=== PATIENT | male | born 2000 | race Caucasian/White ===

== ENCOUNTER 2022-06-06 00:41 | Emergency (ER) | payer BC ==
[2022-06-06 00:52] VITALS: BP 130/78; PULSE 81; RESP 18
[2022-06-06 01:06] VITALS: TEMP 98.1
[2022-06-06] MEDS ORDERED: CEPHALEXIN 500 MG CAP PO STA (01:19)
[2022-06-06] MEDS ORDERED: SULFAMETHOX-TMP 800-160MG 1 EACH TAB PO STA (01:19)
--- NOTE | 2022-06-06 01:33 | ED ---
Skin/Abscess/FB HPI - General Chief complaint: Skin/Abscess/Foreign Body Stated complaint: RT arm abscess Time Seen by Provider: 06/06/22 01:03 Source: patient, RN notes reviewed Mode of arrival: ambulatory Limitations: no limitations - History of Present Illness Initial comments: This is a 21-year-old male who presents to the emergency department for an abscess to the right armpit. He said he first noticed this today. He is not having any significant pain. He had a similar problem in the left armpit in December 2021. He was started on Bactrim, but states that the problem progressed and he subsequently required hospital admission with IV antibiotics. Denies any fevers, chills, sore throat, cough, dyspnea, chest pain, palpitations, abdominal pain, nausea, vomiting, diarrhea, back pain, or headaches. MD complaint: abscess/boil Onset/Timin -: days(s) Location: RUE - Related Data Previous Rx's Medication Instructions Recorded Sulfamethox-Tmp 800-160Mg [Bactrim 1 tab PO Q12HR 7 Days #14 tab 01/07/22 DS 800-160 mg] Cephalexin [Keflex] 500 mg PO Q6HR 7 Days #28 cap 06/06/22 Sulfamethox-Tmp 800-160Mg [Bactrim 1 tab PO Q12HR 7 Days #14 tab 06/06/22 DS 800-160 mg] Allergies Allergy/AdvReac Type Severity Reaction Status Date / Time No Known Allergies Allergy Verified 01/13/22 15:16 Review of Systems ROS Statement: Those systems with pertinent positive or pertinent negative responses have been documented in the HPI. ROS Other: All systems not noted in ROS Statement are negative. Past Medical History Past Medical History: No Reported History History of Any Multi-Drug Resistant Organisms: None Reported Past Surgical History: No Surgical Hx Reported Past Psychological History: ADD/ADHD, Bipolar Smoking Status: Current every day smoker Past Alcohol Use History: None Reported Past Drug Use History: None Reported General Exam Limitations: no limitations General appearance: alert, in no apparent distress Head exam: Present: atraumatic, normocephalic, normal inspection Respiratory exam: Present: normal lung sounds bilaterally. Absent: respiratory distress, wheezes, rales, rhonchi, stridor Cardiovascular Exam: Present: regular rate, normal rhythm, normal heart sounds. Absent: systolic murmur, diastolic murmur, rubs, gallop, clicks Neurological exam: Present: alert, oriented X3, CN II-XII intact Psychiatric exam: Present: normal affect, normal mood Skin exam: Present: other (2cm palpable mass in the right axilla. No overylying erythema or punctate areas. Mild tenderness.) Course Vital Signs 06/06/22 00:47 Temperature 98.1 F Pulse Rate 81 Respiratory 18 Rate Blood Pressure 130/78 O2 Sat by Pulse 98 Oximetry Medical Decision Making - Medical Decision Making This is a 21-year-old male who presents to the emergency department for a mass in the right axilla. Was pt. sent in by a medical professional or institution? @ -No Did you speak to anyone other than the patient for history? @ -No Did you review nursing and triage notes? @ -Yes, and I agree, it is accurate with regards to the patient's symptoms. Were old charts reviewed? @ -No Differential Diagnosis? @ -Differential Mass: -Abscess, carbuncle, furuncle, lymph node, this is not meant to be an all- inclusive list. What testing was considered but not performed? (CT, X-rays, U/S, labs)? Why? @ -None What meds were considered but not given? Why? @ -None Did you discuss the management of the patient with other professionals? @ -No Did you reconcile home meds? @ -No Was smoking cessation discussed for >3mins.? @ -No Was critical care preformed (if so, how long)? @ -No Were there social determinants of health that impacted care today? How? (Homelessness, low income, unemployed, alcoholism, drug addiction, t ransportation, low edu. Level, literacy, decrease access to med. care, halfway, rehab)? @ -No Was there de-escalation of care discussed even if they declined? (Discuss DNR or withdrawal of care, Hospice)? @ -No What co-morbidities impacted this encounter? (DM, HTN, Smoking, COPD, CAD, Cancer, CVA, Hep., AIDS, mental health diagnosis, sleep apnea, morbid obesity)? @ -None Was patient admitted / discharged? @ -Discharged. Physical examination consistent with the start of an abscess. Discussed with the patient the option of attempting a needle aspiration versus starting with oral antibiotics. Patient requests to start with oral antibiotics and avoid needle aspiration at this time. Given the failure of outpatient management with just the Bactrim in the past, prescription for Bactrim and Keflex provided with dosing instructions reviewed. First doses were ad ministered in the emergency department. Advised to apply warm compresses and alternate with ibuprofen and Tylenol for pain relief. Undiagnosed new problem with uncertain prognosis? @ -None Drug Therapy requiring intensive monitoring for toxicity (Heparin, Nitro, Insulin, Cardizem)? @ -None Were any procedures done? @ -None Diagnosis/symptom? @ -Abscess Acute, or Chronic, or Acute on Chronic? @ -Acute Uncomplicated (without systemic symptoms) or Complicated (systemic symptoms)? @ -Uncomplicated Side effects of treatment? @ -None Exacerbation, Progression, or Severe Exacerbation] @ -Not applicable Poses a threat to life or bodily function? @ -No Return precautions reviewed in depth, the patient is instructed to return to the emergency department with any new, worsening, or concerning symptoms. Patient verbalized understanding. This case was discussed in detail with the attending ED physician, Dr. Qureshi. Presentation, findings, and treatment plan discussed in detail as well. Disposition Clinical Impression: Abscess of right arm Disposition: HOME SELF-CARE Instructions (If sedation given, give patient instructions): Abscess (ED) Additional Instructions: Return to the emergency department with any new, worsening, or concerning symptoms. Take both antibiotics as prescribed for 7 days. Apply warm compresses. Follow up with your primary care provider in 1-2 days. Prescriptions: Sulfamethox-Tmp 800-160Mg [Bactrim DS 800-160 mg] 1 tab PO Q12HR 7 Days #14 tab Cephalexin [Keflex] 500 mg PO Q6HR 7 Days #28 cap Is patient prescribed a controlled substance at d/c from ED?: No Referrals: None,Stated [Primary Care Provider] - 1-2 days
== END 2022-06-06 01:38 | disposition home or self-care (01) ==
LOC: EC 00:41
DX: L02.411 Cutaneous abscess of right axilla (principal); F17.200 Nicotine dependence, unspecified, uncomplicated
CPT/HCPCS: 99282

== ENCOUNTER 2023-01-06 20:10 | Inpatient (IN) | payer BC, MEDICAID ==
--- NOTE | 2023-01-06 21:16 | XR ---
EXAMINATION TYPE: XR KUB DATE OF EXAM: 01/06/2023 8:59 PM INDICATION: Patient age:Male; 22 years old; Reason for study: swallowed coins; COMPARISON: None. TECHNIQUE: One radiographic view of the abdomen was obtained. FINDINGS: Multiple metallic coins (5) are seen projecting over the lower abdomen. The bowel gas patte rn is nonspecific without dilated loops of small or large bowel. There is no evidence for organomegal y or pneumoperitoneum. The osseous structures are intact. No abnormal calcifications are present. F ecal material and gas are demonstrated throughout the colon and rectum. IMPRESSION: Multiple coins are seen projecting over the lower abdomen.
[2023-01-06 23:52] LABS: Amphetamine Screen,Urine Not Detected (NotDetected); Barbiturate Screen,Urine Not Detected (NotDetected); Benzodiazepines Screen,Urine Not Detected (NotDetected); Cocaine Screen,Urine Not Detected (NotDetected); Methadone Screen, Urine Not Detected (NotDetected); Opiate Screen,Urine Not Detected (NotDetected); Oxycodone Screen, Urine Not Detected (NotDetected); Phencyclidine Screen,Urine Not Detected (NotDetected); Tricyclic Antidepressant,Urine Not Detected (NotDetected); Urn Cannabinoid Scrn Detected (NotDetected)
--- NOTE | 2023-01-07 01:03 | ED ---
Psych HPI - General Chief Complaint: Psychiatric Symptoms Stated Complaint: Psych Eval Time Seen by Provider: 01/06/23 20:35 Source: patient Mode of arrival: ambulatory - History of Present Illness Initial Comments: 22-year-old male who presents emergency department requesting mental health evaluation. Has a history of bipolar. States he does not take any medications and has not seen a physician in a "long time". He states that his mental health has been declining. He years voices. He states he can't focus. He has suicidal thoughts. States that he swallowed some coins last week. Today he attempted to drop off a 20 foot bridge. He denies actually hurting himself from the jump. He has been previously hospitalized. He denies drug or alcohol use. No other alleviating, precipitating or modifying factors - Related Data Previous Rx's Medication Instructions Recorded Sulfamethox-Tmp 800-160Mg [Bactrim 1 tab PO Q12HR 7 Days #14 tab 01/07/22 DS 800-160 mg] Cephalexin [Keflex] 500 mg PO Q6HR 7 Days #28 cap 06/06/22 Sulfamethox-Tmp 800-160Mg [Bactrim 1 tab PO Q12HR 7 Days #14 tab 06/06/22 DS 800-160 mg] Allergies Allergy/AdvReac Type Severity Reaction Status Date / Time No Known Allergies Allergy Verified 01/07/23 03:03 Review of Systems ROS Statement: Those systems with pertinent positive or pertinent negative responses have been documented in the HPI. ROS Other: All systems not noted in ROS Statement are negative. Past Medical History Past Medical History: No Reported History History of Any Multi-Drug Resistant Organisms: None Reported Past Surgical History: No Surgical Hx Reported Past Psychological History: ADD/ADHD, Bipolar Smoking Status: Current every day smoker Past Alcohol Use History: None Reported Past Drug Use History: None Reported General Exam General appearance: alert, in no apparent distress Head exam: Present: atraumatic, normocephalic, normal inspection Eye exam: Present: normal appearance, PERRL, EOMI. Absent: scleral icterus, conjunctival injection, periorbital swelling ENT exam: Present: normal exam, mucous membranes moist Neck exam: Present: normal inspection. Absent: tenderness, meningismus, lymphadenopathy Respiratory exam: Present: normal lung sounds bilaterally. Absent: respiratory distress, wheezes, rales, rhonchi, stridor Cardiovascular Exam: Present: regular rate, normal rhythm, normal heart sounds. Absent: systolic murmur, diastolic murmur, rubs, gallop, clicks GI/Abdominal exam: Present: soft, normal bowel sounds. Absent: distended, tenderness, guarding, rebound, rigid Extremities exam: Present: normal inspection, full ROM, normal capillary refill. Absent: tenderness, pedal edema, joint swelling, calf tenderness Back exam: Present: normal inspection Neurological exam: Present: alert, oriented X3, CN II-XII intact Psychiatric exam: Present: agitated, anxious, suicidal ideation Skin exam: Present: warm, dry, intact, normal color. Absent: rash Course Vital Signs 01/06/23 01/07/23 20:31 03:22 Temperature 98.6 F 97.0 F L Pulse Rate 75 Pulse Rate [ 59 L Right] Respiratory 20 18 Rate Blood Pressure 112/65 Blood Pressure 115/55 [Right Arm] O2 Sat by Pulse 98 100 Oximetry Medical Decision Making - Medical Decision Making Was pt. sent in by a medical professional or institution (, PA, NURSE PRN, urgent care, hospital, or care home...) When possible be specific @ -No Did you speak to anyone other than the patient for history (EMS, parent, family, police, friend...)? What history was obtained from this source @ -No Did you review nursing and triage notes (agree or disagree)? Why? @ -I reviewed and agree with nursing and triage notes Were old charts reviewed (outside hosp., previous admission, EMS record, old EKG, old radiological studies, urgent care reports/EKG's, care home records)? Report findings @ -No old charts were reviewed Differential Diagnosis (chest pain, altered mental status, abdominal pain women, abdominal pain men, vaginal bleeding, weakness, fever, dyspnea, syncope, headache, dizziness, GI bleed, back pain, seizure, CVA, palpatations, mental health, musculoskeletal)? @ -Differential Mental Health Depression, anxiety, bipolar, psychosis, schizophrenia, borderline personality, situational depression, adjustment disorder, behavioral disorder, brain tumor, malingering, substance abuse, encephalopathy, medication reaction, dementia, hyp othyroidism, degenerative neurologic disorder, lupus.... This is not meant to be all-inclusive list EKG interpreted by me (3pts min.). @ -Not done X-rays interpreted by me (1pt min.). @ -Yes and demonstrates multiple coins within the lower abdomen CT interpreted by me (1pt min.). @ -None done U/S interpreted by me (1pt. min.). @ -None done What testing was considered but not performed or refused? (CT, X-rays, U/S, labs)? Why? @ -None What meds were considered but not given or refused? Why? @ -None Did you discuss the management of the patient with other professionals (professionals i.e. DrChapin, PA, NURSE PRN, lab, RT, psych nurse, social media marketing analyst, golf course keeper, te acher, global chief creative officer, case packer and sealer)? Give summary @ -EPS nurse Was smoking cessation discussed for >3mins.? @ -No Was critical care preformed (if so, how long)? @ -No Were there social determinants of health that impacted care today? How? (Homelessness, low income, unemployed, alcoholism, drug addiction, transportation, low edu. Level, literacy, decrease access to med. care, half-way, r ehab)? @ -No Was there de-escalation of care discussed even if they declined (Discuss DNR or withdrawal of care, Hospice)? DNR status @ -No What co-morbidities impacted this encounter? (DM, HTN, Smoking, COPD, CAD, Cancer, CVA, ARF, Chemo, Hep., AIDS, mental health diagnosis, sleep apnea, morbid obesity)? @ -Bipolar Was patient admitted / discharged? Hospital course, mention meds given and route, prescriptions, significant lab abnormalities, going to OR and other pertinent info. @ -Upon arrival patient was placed into room 13. Thorough history and physical exam is performed. He is not intoxicated. He is evaluated by EPS who recommend admission Undiagnosed new problem with uncertain prognosis? @ -No Drug Therapy requiring intensive monitoring for toxicity (Heparin, Nitro, Insulin, Cardizem)? @ -No Were any procedures done? @ -No Diagnosis/symptom? @ -Acute depression, ingested foreign body Acute, or Chronic, or Acute on Chronic? @ -Acute Uncomplicated (without systemic symptoms) or Complicated (systemic symptoms)? @ -Complicated Side effects of treatment? @ -No Exacerbation, Progression, or Severe Exacerbation? @ -No Poses a threat to life or bodily function? How? (Chest pain, USA, MA, pneumonia, PE, COPD, DKA, ARF, appy, cholecystitis, CVA, Diverticulitis, Homicidal, Suicidal, threat to staff... and all critical care pts) @ -Yes, patient is actively suicidal - Lab Data Result diagrams: 01/08/23 06:05 01/08/23 06:05 Lab Results 01/06/23 01/07/23 Range/Units 22:00 00:50 Urine Opiates Screen Not Detected (NotDetected) Ur Oxycodone Screen Not Detected (NotDetected) Urine Methadone Screen Not Detected (NotDetected) Ur Propoxyphene Screen Not Detected (NotDetected) Ur Barbiturates Screen Not Detected (NotDetected) U Tricyclic Antidepress Not Detected (NotDetected) Ur Phencyclidine Scrn Not Detected (NotDetected) Ur Amphetamines Screen Not Detected (NotDetected) U Methamphetamines Scrn Not Detected (NotDetected) U Benzodiazepines Scrn Not Detected (NotDetected) Urine Cocaine Screen Not Detected (NotDetected) U Marijuana (THC) Screen Detected H (NotDetected) Influenza Type A (PCR) Not Detected (Not Detectd) Influenza Type B (PCR) Not Detected (Not Detectd) RSV (PCR) Not Detected (Not Detectd) SARS-CoV-2 (PCR) Not Detected (Not Detectd) Disposition Clinical Impression: Depression, Foreign body ingestion Disposition: TRANSFER TO PSYCH HOSP/UNIT Condition: Stable Is patient prescribed a controlled substance at d/c from ED?: No
[2023-01-07] MEDS ORDERED: LORazepam 2 MG/ML INJ IM PRN (02:57)
[2023-01-07] MEDS ORDERED: IBUPROFEN 600 MG TAB PO PRN (02:57)
[2023-01-07] MEDS ORDERED: MAG HYDROX/AL HYDROX/SIMETH 30 ML CUP PO PRN (02:57)
[2023-01-07] MEDS ORDERED: MAGNESIUM HYDROXIDE 2,400 MG/30 ML CUP PO PRN (02:57)
[2023-01-07] MEDS ORDERED: ACETAMINOPHEN TAB 325 MG TAB PO PRN (02:57)
[2023-01-07] MEDS ORDERED: haloperidoL 5 MG TAB PO PRN (02:57)
[2023-01-07] MEDS ORDERED: HALOPERIDOL LACTATE 5 MG/ML 1 ML VIAL IM PRN (02:57)
[2023-01-07] MEDS: LORazepam 1 MG TAB PO PRN ×2 (05:06→20:40)
[2023-01-07] MEDS ORDERED: ZOLPIDEM 5 MG TAB PO PRN (05:38)
--- NOTE | 2023-01-07 05:38 | P.MDCNMH ---
History of Present Illness H&P Date: 01/07/23 Chief Complaint: Medical evaluation 23-year-old male denies any significant past medical history He comes in for evaluation due to inability to focus, depression, suicidal ideation, he admits to auditory hallucinations. He feels like he can't live anymore. Patient has multiple lesions over bilateral hands are not itchy they look like raised lesions. Keeps appearing over his bilateral hands no other spots over his body he had them for a long while now no erythema no drainage no fevers no chills The patient currently denies any medical concerns , denies any fever, chills, cough, sore throat, chest pain , trouble breathing , nausea , vomiting, abd pain , changes in urinary or bowel habits. Patient denies any tobacco smoking and illicit drugs or alcohol review of systems Pertinent positives as noted in HPI. All other systems were reviewed and are negative on exam Constitutional: No acute distress Eyes: Anicteric sclerae, moist conjunctiva, Pupils equal round reactive to light Lungs: Clear to auscultation Clear to percussion Normal respiratory effort, no accessory muscle use Cardiovascular: Heart regular in rate and rhythm, No murmurs, gallops, or rubs No peripheral edema Abdominal: Soft Nontender, no guarding, rebound or rigidity Abdomen moving with respiration Normoactive bowel sounds Extremities: Papular lesions with cauliflower-like surface firm nontender multiple over bilateral palmar aspects of the hands looks like warts no bleeding no drainage no surrounding erythema no tenderness No clubbing Pedal pulses intact and symmetrical Radial pulses intact and symmetrical No calf tenderness Psychiatric: Alert and oriented to person, place and time Neuro Muscles Strength 5/5 in all 4 extremities Sensation to light touch grossly present throughout Past Medical History Past Medical History: No Reported History Additional Past Medical History / Comment(s): HEP C History of Any Multi-Drug Resistant Organisms: None Reported Past Surgical History: No Surgical Hx Reported Past Psychological History: ADD/ADHD, Bipolar Smoking Status: Former smoker, Vaper Past Alcohol Use History: None Reported Past Drug Use History: None Reported Medications and Allergies Home Medications Medication Instructions Recorded Confirmed Type Sulfamethox-Tmp 800-160Mg [Bactrim 1 tab PO Q12HR 7 Days #14 tab 01/07/22 Rx DS 800-160 mg] Cephalexin [Keflex] 500 mg PO Q6HR 7 Days #28 cap 06/06/22 Rx Sulfamethox-Tmp 800-160Mg [Bactrim 1 tab PO Q12HR 7 Days #14 tab 06/06/22 Rx DS 800-160 mg] Allergies Allergy/AdvReac Type Severity Reaction Status Date / Time No Known Allergies Allergy Verified 01/07/23 03:03 Physical Exam Vitals: Vital Signs Temp Pulse Pulse Resp BP BP Pulse Ox 01/07/23 03:22 97.0 F L 59 L 18 115/55 100 01/06/23 20:31 98.6 F 75 20 112/65 98 Intake and Output 01/06/23 01/06/23 01/07/23 14:59 22:59 06:59 Other: Weight 68.039 kg 68.039 kg Cranial Nerve Examination - Cranial Nerves Cranial Nerve II- Optic: Intact Cranial Nerve III- Oculomotor: Intact Cranial Nerve IV- Trochlear: Intact Cranial Nerve V- Trigeminal: Intact Cranial Nerve - Abducens: Intact Cranial Nerve VII- Facial: Intact Cranial Nerve VIII- Auditory: Intact Cranial Nerve IX- Glossopharyngeal: Intact Cranial Nerve X- Vagus: Intact Cranial Nerve XI- Accessory: Intact Cranial Nerve XII- Hypoglossal: Intact Results Labs: Abnormal Lab Results - Last 24 Hours (Table) 01/06/23 Range/Units 22:00 U Marijuana (THC) Screen Detected H (NotDetected) Assessment and Plan Assessment: Depression and suicidal ideation Hallucinations out. Management per psych Insomnia Trial of Ambien 5 mg at bedtime when necessary Polysubstance abuse Patient counseled to quit smoking, nicotine replacement therapy offered Patient counseled to quit marijuana Multiple warts over bilateral hands Consider outpatient follow-up with dermatology for removal Blood work not available Urine drug screen positive for marijuana Acute respiratory viral panel negative for Covid RSV and influenza Stable from medical standpoint Thank you for this consultation
[2023-01-07] MEDS: NICOTINE 14MG/24HR PATCH TRANSDERM SCH (09:08)
--- NOTE | 2023-01-07 14:32 | P.HP ---
Psychiatric H&P - . H&P Date: 01/07/23 History & Physical: Allergies Allergy/AdvReac Type Severity Reaction Status Date / Time No Known Allergies Allergy Verified 01/07/23 03:03 Vital Signs Temp 97.0 F L 01/07/23 03:22 Pulse 59 L 01/07/23 03:22 Resp 18 01/07/23 03:22 BP 115/55 01/07/23 03:22 Pulse Ox 100 01/07/23 03:22 FiO2 Intake & Output 01/06/23 01/07/23 01/07/23 18:59 06:59 18:59 Weight 68.039 kg Laboratory Last Values Urine Opiates Screen Not Detected (NotDetected) 01/06/23 22:00 Ur Oxycodone Screen Not Detected (NotDetected) 01/06/23 22:00 Urine Methadone Screen Not Detected (NotDetected) 01/06/23 22:00 Ur Propoxyphene Screen Not Detected (NotDetected) 01/06/23 22:00 Ur Barbiturates Screen Not Detected (NotDetected) 01/06/23 22:00 U Tricyclic Antidepress Not Detected (NotDetected) 01/06/23 22:00 Ur Phencyclidine Scrn Not Detected (NotDetected) 01/06/23 22:00 Ur Amphetamines Screen Not Detected (NotDetected) 01/06/23 22:00 U Methamphetamines Scrn Not Detected (NotDetected) 01/06/23 22:00 U Benzodiazepines Scrn Not Detected (NotDetected) 01/06/23 22:00 Urine Cocaine Screen Not Detected (NotDetected) 01/06/23 22:00 U Marijuana (THC) Screen Detected (NotDetected) H 01/06/23 22:00 Influenza Type A (PCR) Not Detected (Not Detectd) 01/07/23 00:50 Influenza Type B (PCR) Not Detected (Not Detectd) 01/07/23 00:50 RSV (PCR) Not Detected (Not Detectd) 01/07/23 00:50 SARS-CoV-2 (PCR) Not Detected (Not Detectd) 01/07/23 00:50 01/07/23 14:26 This is a psychiatric evaluation on Gilmer Skelton who is a 22-year-old male and was hospitalized for severe depression and suicidal ideations and a plan Patient had been threatening to jump off the bridge Patient admits that he has a long history of mental illness with a diagnoses of bipolar disorder He reports that he has been in treatment in the past but has not had any follow- up for a long time He says that he wants to know why he cannot keep a job and that he keeps getting fired He says that the last was 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 The admits that he has been using different drugs including methamphetamine and cannabis He said his last use was about 3 months ago Patient states that he is currently living with a girlfriend Patient also admits having intermittent auditory hallucinations Past history personal social history Patient remains a very poor historian and mumbles most of his answers that are difficult to hear Patient reports that he has been in treatment in the past and is open to taking medications Patient did sign the forms during this interview but did not seem to be too interested in giving much information Mental Status Exam: General Appearance: Appears unkept long hair and presley dirty looking Behavior: Patient is laying in bed without any agitated behavior. Uninterested in on a motivated Speech: Patient's speech is fluent and nonpressured. rambling, soft tone of voice. Barely audible Mood/Affect: Admits feeling depressed Suicidality/Homicidality: Patient denies having any suicidal or homicidal ideation intent or plan. Perceptions: Patient denies any current visual hallucinations and avoids responding to question about AH. Though content/process: bizarre, delusional, improving mildly. minimizing need for treatment. Memory and concentration: AOX3, grossly intact for the purposes of this session Judgment and insight: Poor and poor Assessment: Bipolar disorder depressed type Polysubstance use disorder that include cannabis and methamphetamine Plan: -Patient continues to meet criteria for inpatient psychiatric admission for symptom stabilization and safety. Patient has signed medication consent and was placed in patient's chart -Medications: Will start the patient on Zyprexa 2.5 mg at bedtime for mood stabilization/psychosis, continue to increase over the weekend as tolerated. -When necessary Ativan and Haldol for agitation/aggression. Talita be a candidate for referral to substance use program if needed -SW on board for discharge planning. Encouraged the patient to participate in milieu. Edmund Ruth M.D.
[2023-01-08] MEDS: LORazepam 1 MG TAB PO PRN ×3 (04:39→20:40)
[2023-01-08 06:32] LABS: Basophils % (A) 1 %; Eosinophils # (A) 0.2 k/uL (0-0.7); Eosinophils % (A) 3 %; Lymphocytes # (A) 1.4 k/uL (1.0-4.8); Lymphocytes % (A) 26 %; MCH 30.8 pg (25.0-35.0); MCHC 33.3 g/dL (31.0-37.0); MCV 92.5 fL (80.0-100.0); Mean Platelet Volume 7.4; Monocytes # (A) 0.3 k/uL (0-1.0); Monocytes % (A) 6 %; Neutrophils # (A) 3.3 k/uL (1.3-7.7); Neutrophils % (A) 62 %; Platelet Count 177 k/uL (150-450); RBC 4.86 m/uL (4.30-5.90); RDW 12.6 % (11.5-15.5); WBC 5.4 k/uL (3.8-10.6)
[2023-01-08 06:38] LABS: ALT 142 U/L (4-49); AST 83 U/L (17-59); African American GFR (CKD) >90 (>60 ml/min/1.73 sqM); Albumin 4.3 g/dL (3.5-5.0); Alkaline Phosphatase 38 U/L (38-126); Anion Gap 8 mmol/L; Blood Urea Nitrogen 14 mg/dL (9-20); Calcium 9.2 mg/dL (8.4-10.2); Carbon Dioxide 27 mmol/L (22-30); Chloride 103 mmol/L (98-107); Glucose 88 mg/dL (74-99); Non-African American GFR(CKD) >90 (>60 ml/min/1.73 sqM); Potassium 4.8 mmol/L (3.5-5.1); Sodium 138 mmol/L (137-145); Total Bilirubin 1.1 mg/dL (0.2-1.3); Total Protein 6.8 g/dL (6.3-8.2)
[2023-01-08 07:22] VITALS: RESP 16
[2023-01-08] MEDS: NICOTINE 14MG/24HR PATCH TRANSDERM SCH (08:12)
[2023-01-08] MEDS ORDERED: OLANZapine 2.5 MG TAB PO SCH (09:00)
--- NOTE | 2023-01-08 10:27 | P.PN ---
Subjective Progress Note Date: 01/08/23 Principal diagnosis: Assessment: Bipolar disorder depressed type Polysubstance use disorder that include cannabis and methamphetamine Patient Name: Gilmer Skelton Date of : 1 Patient Status: Inpatient Attending Provider: Arjun Pope Date: 01/08/[address] Edmund Ruth M.D. Subjective data: The patient was seen in his room where he was laying comfortably in bed He was somewhat hard to arouse Patient mumbles most of his answers which were difficult to follow Patient however demanded that he be put back on Wellbutrin it seemed to work better for him Patient denies any suicidal or homicidal ideations or plans He says that he was under the impression that he was here for a mental margie luation and that he prefers to go back home He says that he has a place to live and that the his uncle or father's going to visit him today Mental Status Exam: General Appearance: Appears unkept long hair and presley dirty looking Behavior: Patient is laying in bed without any agitated behavior. Speech: Patient's speech is fluent and nonpressured. rambling, soft tone of voice. Barely audible Mood/Affect: Admits feeling depressed Suicidality/Homicidality: Patient denies having any suicidal or homicidal ideation intent or plan. Perceptions: Patient denies any current visual hallucinations and avoids responding to question about AH. Though content/process: bizarre, delusional, improving mildly. minimizing need for treatment. Memory and concentration: AOX3, grossly intact for the purposes of this session Judgment and insight: Poor and poor Assessment: Bipolar disorder depressed type Polysubstance use disorder that include cannabis and methamphetamine Plan: -Patient continues to meet criteria for inpatient psychiatric admission for symptom stabilization and safety. Patient has signed medication consent and was placed in patient's chart -Medications: Will start the patient on Zyprexa 2.5 mg at bedtime for mood stabilization/psychosis, continue to increase over the weekend as tolerated. Patient however continues to be wanting to switch to Wellbutrin but is willing to take the Zyprexa if the Wellbutrin is continued also Patient remains on seeking stimulant medication although do not believe that adding 100 mg of Wellbutrin would be detrimental if the patient also takes the Zyprexa which will be increased to 5 mg at bedtime -When necessary Ativan and Haldol for agitation/aggression. Tlaita be a candidate for referral to substance use program if needed -SW on board for discharge planning. Encouraged the patient to participate in milieu. Edmund Ruth M.D. Objective - Vital Signs Vital signs: Vital Signs Temp 97.5 F L 01/08/23 06:50 Pulse 87 01/08/23 06:50 Resp 16 01/08/23 06:50 BP 111/65 01/08/23 06:50 Pulse Ox 100 01/07/23 03:22 FiO2 - Labs CBC & Chem 7: 01/08/23 06:05 01/08/23 06:05 Labs: Abnormal Lab Results - Last 24 Hours (Table) 01/08/23 Range/Units 06:05 AST 83 H (17-59) U/L ALT 142 H (4-49) U/L
[2023-01-08 13:30] LABS: LDL Cholesterol,Calculated 44.3 mg/dL (0.0-131.0); VLDL Calculation 9.38 mg/dL (5.00-40.00)
[2023-01-09] MEDS: LORazepam 1 MG TAB PO PRN ×2 (05:32→12:17)
[2023-01-09 07:14] VITALS: BP 118/63; PULSE 98; TEMP 98.1
[2023-01-09] MEDS: NICOTINE 14MG/24HR PATCH TRANSDERM SCH (08:52)
[2023-01-09] MEDS ORDERED: buPROPion SR 100 MG TABLET.ER PO SCH (09:00)
[2023-01-09] MEDS ORDERED: OLANZapine 5 MG TAB PO SCH (09:00)
--- NOTE | 2023-01-09 12:02 | P.DS ---
Providers Date of admission: 01/07/23 02:53 Expected date of discharge: 01/09/23 Attending physician: Arjun Pope MD Consults: 01/07/23 02:57 Consult Physician Routine Consulting Provider: Veronica Gonzalez Consult Reason/Comments: h&p for Mental health admission Do you want consulting provider notified?: Yes Primary care physician: Stated None - Discharge Diagnosis(es) (1) Bipolar disorder with depression Current Visit: Yes Status: Acute Priority: High (2) Polysubstance abuse Current Visit: Yes Status: Chronic Priority: Medium (3) Cannabis use disorder Current Visit: Yes Status: Chronic Priority: Medium (4) Stimulant abuse Current Visit: Yes Status: Chronic Priority: Medium Hospital Course: Admission HPI: Initial psychiatric evaluation was completed by Dr. 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 The admits that he has been using different drugs including methamphetamine and cannabis He said his last use was about 3 months ago Patient states that he is currently living with a girlfriend Patient also admits having intermittent auditory hallucinations Past history personal social history Patient remains a very poor historian and mumbles most of his answers that are difficult to hear Patient reports that he has been in treatment in the past and is open to taking medications Patient did sign the forms during this interview but did not seem to be too interested in giving much information Hospital course: Upon admission to the unit patient was initially presenting as somewhat manic, paranoid, and was noted to be rambling. He was disheveled. Patient was however directable and agreeable to commence treatment. Patient got along well with other patients on the unit and followed unit protocol. Patient was compliant with the medications and denied any side effects throughout hospital course. Patient was started on Zyprexa for mood stabilization/psychosis. Patient spoke of his stressors and engaged in therapy both group and individual. He was also started on Wellbutrin as per patient preference in order to address issues regarding focus and depression. Patient was also seen by medical team for history and physical exam. On this regimen of Zyprexa and Wellbutrin, the patient displayed significant improvement in regards to target symptoms of depression and suicidal thoughts. However, the patient continued to report elevated anxiety. History was obtained and the patient did admit to heavy substance abuse including use of methamphetamines, cocaine, ecstasy, and other substances in the past. He remained fixated on being prescribed medications that are benzodiazepines. The patient was provided with psychoeducation on the dangers of polysubstance abuse and incorrect prescribing of medications. However, the patient appears to be pre-contemplative on this as he reports that he prefers to be placed on medication that "work for me." He was informed that medications are "work for him" are not necessarily medications that follow the standard of care for safe practice. On the day of discharge, the patient is not reporting any suicidal or homicidal ideation, intention, and/or plan. He reports no access to firearms or other weapons. He reports that he is feeling significantly better and is vehemently denying any concerns of self-harm. He reports wanting to live for himself and for his family. He is not reporting any auditory or visual hallucinations. He denies any paranoia or other delusions. He reports no access to firearms or other weapons. He expresses a strong desire for discharge and is future and goal oriented. He plans to go back to work. He has been adherent with his medication and is not reporting any significant side effects. He reports no medical issues or concerns and reports no chest pain, shortness of breath, palpitations, akathisia, or tardive dyskinesia. The patient does have a significant history of polysubstance abuse and was counseled at great length on abstaining from all substances including alcohol, tobacco, marijuana, and all illicit drugs. However, the patientto this provider that marijuana is one of the only things that really helps him. This provider has attempted multiple times to educate him on polysubstance abuse however the patient is pre- contemplative. As the patient no longer met criteria for continued inpatient psychiatric hospitalization, he was subsequently discharged after appropriate safety planning. Mental status exam: General Appearance: Patient appears to be stated age is alert, pleasant, and cooperative. Patient is in no acute distress and has slightly disheveled hygiene and grooming Behavior: Patient is calmly seated without any agitated behavior. Speech: Patient's speech is fluent and nonpressured. Hyperverbal but interrupt ible. Mood/Affect: Patient reports their mood is "I'm feeling much better and ready to go home", affect is congruent, bright, expansive. Suicidality/Homicidality: Patient vehemently denies any suicidal or homicidal ideation, intention, and/or plan. Perceptions: Patient denies any auditory or visual hallucinations. Though content/process: There is no evidence of any delusional thought content and thought process is linear and goal-directed. The patient is future and goal oriented. Medication seeking. Memory and concentration: AOX3, grossly intact for the purposes of this session. Can spell "WORLD" backwards correctly. Judgment and insight: Improved with guarded prognosis Impression: Bipolar disorder, depressive type Polysubstance use disorder Cannabis use disorder Stimulant abuse Plan: -Continue with discharge today as patient has improved and stabilized psychiatrically and is not currently an imminent threat to himself and/or others. Patient will remain at chronically elevated risk for harm to self and/or others due to his impulsivity and polysubstance abuse. -Continue medications: Zyprexa 5 mg by mouth daily for mood stabilization Wellbutrin SR 100 mg by mouth daily for depression and focus -Patient was counseled on the need for medication compliance and appropriate follow-up at mental health and also primary care for medical issues. Patient verbalized understanding and agreed. -Social work to arrange for and conduct family meeting to ensure safety upon discharge and answer any questions/concerns. Social work also to arrange for patients follow up appointments for psychiatric care along with follow up with primary care provider. -Patient counseled on abstaining from recreational drugs and marijuana and alcohol. Was informed/educated on the adverse effects on their physical and mental health. Patient verbally acknowledged however is not in agreement. Patient was offered substance abuse treatment however declined at this time. -Patient was instructed to return to the hospital or seek immediate medical care if their psychiatric or medical symptoms do worsen or reoccur. -Psychoeducation and supportive therapy provided to patient. Risks and benefits of pharmacological treatment versus the risks and benefits of nontreatment weighed and discussed. Informed consent discussion held. Common side effects of psychotropics discussed such as, but not limited to headache, GI disturbance, sexual dysfunction, movement disorders, sedation, and orthostatic hypotension. Life threatening and blackbox warnings of prescribed medications also discussed. Potential risks of operating a vehicle or heavy machinery discussed with patient at length. Advised on importance of compliance and a reliable and responsible manner. Patient advised to review FDA consumer labeling of all medications prior to taking. Patient verbalized understanding of potential risks, and agrees with current treatment plan. Patient advised to medically contact physician/emergency personnel if any acute changes in condition occur. Vital Signs Temp 98.1 F 01/09/23 06:53 Pulse 98 01/09/23 06:53 Resp 16 01/09/23 06:53 BP 118/63 01/09/23 06:53 Pulse Ox 98 01/09/23 06:53 FiO2 Intake & Output 01/08/23 01/09/23 01/09/23 18:59 06:59 18:59 Weight 66.6 kg Laboratory Results WBC 5.4 k/uL (3.8-10.6) 01/08/23 06:05 RBC 4.86 m/uL (4.30-5.90) 01/08/23 06:05 Hgb 15.0 gm/dL (13.0-17.5) 01/08/23 06:05 Hct 45.0 % (39.0-53.0) 01/08/23 06:05 MCV 92.5 fL (80.0-100.0) 01/08/23 06:05 MCH 30.8 pg (25.0-35.0) 01/08/23 06:05 MCHC 33.3 g/dL (31.0-37.0) 01/08/23 06:05 RDW 12.6 % (11.5-15.5) 01/08/23 06:05 Plt Count 177 k/uL (150-450) 01/08/23 06:05 MPV 7.4 01/08/23 06:05 Neutrophils % 62 % 01/08/23 06:05 Lymphocytes % 26 % 01/08/23 06:05 Monocytes % 6 % 01/08/23 06:05 Eosinophils % 3 % 01/08/23 06:05 Basophils % 1 % 01/08/23 06:05 Neutrophils # 3.3 k/uL (1.3-7.7) 01/08/23 06:05 Lymphocytes # 1.4 k/uL (1.0-4.8) 01/08/23 06:05 Monocytes # 0.3 k/uL (0-1.0) 01/08/23 06:05 Eosinophils # 0.2 k/uL (0-0.7) 01/08/23 06:05 Basophils # 0.0 k/uL (0-0.2) 01/08/23 06:05 Sodium 138 mmol/L (137-145) 01/08/23 06:05 Potassium 4.8 mmol/L (3.5-5.1) 01/08/23 06:05 Chloride 103 mmol/L (98-107) 01/08/23 06:05 Carbon Dioxide 27 mmol/L (22-30) 01/08/23 06:05 Anion Gap 8 mmol/L 01/08/23 06:05 BUN 14 mg/dL (9-20) 01/08/23 06:05 Creatinine 0.84 mg/dL (0.66-1.25) 01/08/23 06:05 Est GFR (CKD-EPI)AfAm >90 (>60 ml/min/1.73 sqM) 01/08/23 06:05 Est GFR (CKD-EPI)NonAf >90 (>60 ml/min/1.73 sqM) 01/08/23 06:05 Glucose 88 mg/dL (74-99) 01/08/23 06:[address] Glu mg/dL 100 mg/dL 01/08/23 06:05 Hemoglobin A1c 5.1 % (<=6.0) 01/08/23 06:05 Calcium 9.2 mg/dL (8.4-10.2) 01/08/23 06:05 Total Bilirubin 1.1 mg/dL (0.2-1.3) 01/08/23 06:05 AST 83 U/L (17-59) H 01/08/23 06:05 ALT 142 U/L (4-49) H 01/08/23 06:05 Alkaline Phosphatase 38 U/L (38-126) 01/08/23 06:05 Total Protein 6.8 g/dL (6.3-8.2) 01/08/23 06:05 Albumin 4.3 g/dL (3.5-5.0) 01/08/23 06:05 Triglycerides 46.90 mg/dL (0.00-149.00) 01/08/23 06:05 Cholesterol 92.00 mg/dL (0.00-200.00) 01/08/23 06:05 LDL Cholesterol, Calc 44.3 mg/dL (0.0-131.0) 01/08/23 06:05 VLDL Cholesterol, Calc 9.38 mg/dL (5.00-40.00) 01/08/23 06:05 HDL Cholesterol 38.30 mg/dL (40.00-60.00) L 01/08/23 06:05 Cholesterol/HDL Ratio 2.40 Ratio 01/08/23 06:05 TSH 1.490 mIU/L (0.465-4.680) 01/08/23 06:05 Urine Opiates Screen Not Detected (NotDetected) 01/06/23 22:00 Ur Oxycodone Screen Not Detected (NotDetected) 01/06/23 22:00 Urine Methadone Screen Not Detected (NotDetected) 01/06/23 22:00 Ur Propoxyphene Screen Not Detected (NotDetected) 01/06/23 22:00 Ur Barbiturates Screen Not Detected (NotDetected) 01/06/23 22:00 U Tricyclic Antidepress Not Detected (NotDetected) 01/06/23 22:00 Ur Phencyclidine Scrn Not Detected (NotDetected) 01/06/23 22:00 Ur Amphetamines Screen Not Detected (NotDetected) 01/06/23 22:00 U Methamphetamines Scrn Not Detected (NotDetected) 01/06/23 22:00 U Benzodiazepines Scrn Not Detected (NotDetected) 01/06/23 22:00 Urine Cocaine Screen Not Detected (NotDetected) 01/06/23 22:00 U Marijuana (THC) Screen Detected (NotDetected) H 01/06/23 22:00 Influenza Type A (PCR) Not Detected (Not Detectd) 01/07/23 00:50 Influenza Type B (PCR) Not Detected (Not Detectd) 01/07/23 00:50 RSV (PCR) Not Detected (Not Detectd) 01/07/23 00:50 SARS-CoV-2 (PCR) Not Detected (Not Detectd) 01/07/23 00:50 Allergies Allergy/AdvReac Type Severity Reaction Status Date / Time No Known Allergies Allergy Verified 01/07/23 03:03 Patient Condition at Discharge: Stable Plan - Discharge Summary Discharge Rx Participant: Yes New Discharge Prescriptions: New buPROPion SR [Wellbutrin SR] 100 mg PO DAILY 30 Days #30 tab OLANZapine [ZyPREXA] 5 mg PO DAILY 30 Days #30 tab Continue Sulfamethox-Tmp 800-160Mg [Bactrim DS 800-160 mg] 1 tab PO Q12HR 7 Days #14 tab Cephalexin [Keflex] 500 mg PO Q6HR 7 Days #28 cap Sulfamethox-Tmp 800-160Mg [Bactrim DS 800-160 mg] 1 tab PO Q12HR 7 Days #14 tab Discharge Medication List Sulfamethox-Tmp 800-160Mg [Bactrim DS 800-160 mg] 1 tab PO Q12HR 7 Days #14 tab 01/07/22 [Rx] Cephalexin [Keflex] 500 mg PO Q6HR 7 Days #28 cap 06/06/22 [Rx] Sulfamethox-Tmp 800-160Mg [Bactrim DS 800-160 mg] 1 tab PO Q12HR 7 Days #14 tab 06/06/22 [Rx] OLANZapine [ZyPREXA] 5 mg PO DAILY 30 Days #30 tab 01/09/23 [Rx] buPROPion SR [Wellbutrin SR] 100 mg PO DAILY 30 Days #30 tab 01/09/23 [Rx] Follow up Appointment(s)/Referral(s): [facility] [NON-STAFF] - 1 Week Patient Instructions/Handouts: Bipolar Disorder (DC), Depression (DC), Polysubstance Abuse (ED) Activity/Diet/Wound Care/Special Instructions: Avoid the use of street drugs and alcohol. Take all medications as prescribed. When you are in need of refills on your medications, please contact your medical provider and/or outpatient psychiatrist/provider to have this done. Please go to your scheduled outpatient appointment for aftercare treatment. If symptoms return or become worse, call the crisis line at and/or go to the nearest emergency room for evaluation. National Suicide Hotline 988. Discharge Disposition: HOME SELF-CARE
== END 2023-01-09 14:41 | disposition home or self-care (01) | DRG 885 ==
LOC: EC 20:10 → 3MHU 01-07 02:53
PROVIDERS: ADMIT Psychiatry & Neurology Psychiatry; ATTEND Psychiatry & Neurology Psychiatry
DX: F31.30 Bipolar disorder, current episode depressed, mild or moderate severity, unspecified (principal); R45.851 Suicidal ideations; T18.9XXA Foreign body of alimentary tract, part unspecified, initial encounter; Z20.822 Contact with and (suspected) exposure to COVID-19; G47.00 Insomnia, unspecified; F90.9 Attention-deficit hyperactivity disorder, unspecified type; F41.9 Anxiety disorder, unspecified; Z59.00 Homelessness unspecified; Z76.5 Malingerer [conscious simulation]; F12.10 Cannabis abuse, uncomplicated; F15.10 Other stimulant abuse, uncomplicated; F17.200 Nicotine dependence, unspecified, uncomplicated; Z71.6 Tobacco abuse counseling; Z71.51 Drug abuse counseling and surveillance of drug abuser; Z79.899 Other long term (current) drug therapy
CPT/HCPCS: 74018; 80053; 80061; 80306; 82075; 83036; 84443; 85025; 87636; 99285

== ENCOUNTER 2023-01-15 00:39 | Emergency (ER) | payer BC, OTHER ==
[2023-01-15 00:47] VITALS: TEMP 97.9
--- NOTE | 2023-01-15 01:41 | ED ---
Recheck HPI - General Chief Complaint: Recheck/Abnormal Lab/Rx Stated Complaint: Recheck Time Seen by Provider: 01/15/23 00:53 Source: patient Mode of arrival: ambulatory Limitations: no limitations - History of Present Illness Initial Comments: 22-year-old male presenting with chief complaint of ingested foreign body. Patient reports that over a week ago he swallowed several points and he would like an x-ray to see if they have past. He has not seen the coins passing his stool. No abdominal pain, nausea, vomiting, rectal bleeding, hematochezia, brent quirozna. States that he swallowed the coins due to "impulsivity". - Related Data Previous Rx's Medication Instructions Recorded Sulfamethox-Tmp 800-160Mg [Bactrim 1 tab PO Q12HR 7 Days #14 tab 01/07/22 DS 800-160 mg] Cephalexin [Keflex] 500 mg PO Q6HR 7 Days #28 cap 06/06/22 Sulfamethox-Tmp 800-160Mg [Bactrim 1 tab PO Q12HR 7 Days #14 tab 06/06/22 DS 800-160 mg] OLANZapine [ZyPREXA] 5 mg PO DAILY 30 Days #30 tab 01/09/23 buPROPion SR [Wellbutrin SR] 100 mg PO DAILY 30 Days #30 tab 01/09/23 Allergies Allergy/AdvReac Type Severity Reaction Status Date / Time No Known Allergies Allergy Verified 01/15/23 00:43 Review of Systems ROS Statement: Those systems with pertinent positive or pertinent negative responses have been documented in the HPI. ROS Other: All systems not noted in ROS Statement are negative. Past Medical History Past Medical History: No Reported History Additional Past Medical History / Comment(s): HEP C History of Any Multi-Drug Resistant Organisms: None Reported Past Surgical History: No Surgical Hx Reported Past Psychological History: ADD/ADHD, Bipolar Smoking Status: Current every day smoker Past Alcohol Use History: Heavy Past Drug Use History: None Reported General Exam Limitations: no limitations General appearance: alert, in no apparent distress Head exam: Present: atraumatic, normocephalic, normal inspection Eye exam: Present: normal appearance, EOMI. Absent: scleral icterus, periorbital swelling Neck exam: Present: normal inspection, full ROM Respiratory exam: Absent: respiratory distress GI/Abdominal exam: Present: soft. Absent: distended, tenderness, guarding, rebound, rigid Neurological exam: Present: alert, oriented X3, CN II-XII intact Psychiatric exam: Present: normal affect, normal mood Skin exam: Present: warm, dry, intact, normal color. Absent: rash Course Vital Signs 01/15/23 01/15/23 00:43 02:02 Temperature 97.9 F Pulse Rate 74 66 Respiratory 18 20 Rate Blood Pressure 121/70 125/74 O2 Sat by Pulse 98 96 Oximetry Medical Decision Making - Medical Decision Making Was pt. sent in by a medical professional or institution (, GARY, HORIZONTAL BORING MILL OPERATOR, urgent care, hospital, or group home...) When possible be specific @ -No Did you speak to anyone other than the patient for history (EMS, parent, family, police, friend...)? What history was obtained from this source @ -No Did you review nursing and triage notes (agree or disagree)? Why? @ -I reviewed and agree with nursing and triage notes Were old charts reviewed (outside hosp., previous admission, EMS record, old EKG, old radiological studies, urgent care reports/EKG's, group home records)? Report findings @ -previous [facility] x-ray is reviewed Differential Diagnosis (chest pain, altered mental status, abdominal pain women, abdominal pain men, vaginal bleeding, weakness, fever, dyspnea, syncope, headache, dizziness, GI bleed, back pain, seizure, CVA, palpatations, mental health, musculoskeletal)? @ -not applicable EKG interpreted by me (3pts min.). @ -As above X-rays interpreted by me (1pt min.). @ -None done CT interpreted by me (1pt min.). @ -None done U/S interpreted by me (1pt. min.). @ -None done What testing was considered but not performed or refused? (CT, X-rays, U/S, labs)? Why? @ -None What meds were considered but not given or refused? Why? @ -None Did you discuss the management of the patient with other professionals (professionals i.e. GARY Abernathy, HORIZONTAL BORING MILL OPERATOR, lab, RT, psych nurse, social worker health services, sales performance analyst, teacher, network security officer, sample case porter)? Give summary @ -No Was smoking cessation discussed for >3mins.? @ -No Was critical care preformed (if so, how long)? @ -No Were there social determinants of health that impacted care today? How? (Homelessness, low income, unemployed, alcoholism, drug addiction, transportation, low edu. Level, literacy, decrease access to med. care, residential, rehab)? @ -No Was there de-escalation of care discussed even if they declined (Discuss DNR or withdrawal of care, Hospice)? DNR status @ -No What co-morbidities impacted this encounter? (DM, HTN, Smoking, COPD, CAD, Cancer, CVA, ARF, Chemo, Hep., AIDS, mental health diagnosis, sleep apnea, morbid obesity)? @ -None Was patient admitted / discharged? Hospital course, mention meds given and route, prescriptions, significant lab abnormalities, going to OR and other pertinent info. @ -22-year-old male presenting requesting x-ray for ingested foreign body. Over a week ago he swallowed several complaints. X-ray is obtained and there appears to still be coins present in the small intestine. Patient is educated on today's findings. Educated on alarms symptoms that should prompt reevaluation. Follow-up with PCP. Report back to ER with any new or worsening symptoms. Discussed return parameters and answered all questions. Patient conveyed verbal understanding and agreed to the plan. I discussed this case in detail with my attending Dr. Gregg Undiagnosed new problem with uncertain prognosis? @ -No Drug Therapy requiring intensive monitoring for toxicity (Heparin, Nitro, Insulin, Cardizem)? @ -No Were any procedures done? @ -No Diagnosis/symptom? @ -Ingested foreign body Acute, or Chronic, or Acute on Chronic? @ -Acute Uncomplicated (without systemic symptoms) or Complicated (systemic symptoms)? @ -Uncomplicated Side effects of treatment? @ -No Exacerbation, Progression, or Severe Exacerbation? @ -No Poses a threat to life or bodily function? How? (Chest pain, USA, [place], pneumonia, PE, COPD, DKA, ARF, appy, cholecystitis, CVA, Diverticulitis, Homicidal, Suicidal, threat to staff... and all critical care pts) @ -No Disposition Clinical Impression: Swallowed foreign body Disposition: HOME SELF-CARE Condition: Good Instructions (If sedation given, give patient instructions): Foreign Body Ingestion (ED) Additional Instructions: Follow-up with PCP. Report back to ER with any new or worsening symptoms. Is patient prescribed a controlled substance at d/c from ED?: No Referrals: None,Stated [Primary Care Provider] - 1-2 days Halley Franklin MD [STAFF PHYSICIAN] - 1-2 days Time of Disposition: 01:41
[2023-01-15 02:03] VITALS: BP 125/74; PULSE 66; RESP 20
--- NOTE | 2023-01-15 03:52 | XR ---
EXAM: XR Abdomen, 2 Views CLINICAL HISTORY: Swallowed coins TECHNIQUE: Frontal view of the abdomen/pelvis with upright view of the abdomen. COMPARISON: 01/06/2023. FINDINGS: Redemonstrated stack of 5 adjacent metallic foreign bodies consistent with coins in the lower left abdomen overlying the level of the L4 spinous process. No bowel obstruction or ileus. Bones are unchanged. No air-fluid levels. No free intraperitoneal gas. IMPRESSION: Redemonstrated stack of multiple adjacent coins overlying the lower abdomen in the lower position as compared the prior study. The coins may be in a fluid-filled stomach versus bowel. No bowel obstruction.
== END 2023-01-15 02:03 | disposition home or self-care (01) ==
LOC: EC 00:39
DX: T18.9XXA Foreign body of alimentary tract, part unspecified, initial encounter (principal); F17.200 Nicotine dependence, unspecified, uncomplicated
CPT/HCPCS: 74018; 99284